=== PATIENT | male | born 1965 | race Caucasian/White ===

== ENCOUNTER 2018-09-18 03:44 | Emergency (ER) | payer OTHER ==
[~2018-09-18] VITALS: Ht 167.6 cm; Wt 77.1 kg
[2018-09-18 03:50] VITALS: Ht 167.6 cm; Wt 77.1 kg
[2018-09-18 05:45] VITALS: BP 157/105
== END 2018-09-18 05:45 | disposition home or self-care (01) ==
LOC: ED 03:44
DX: J32.8 Other chronic sinusitis (principal); L29.9 Pruritus, unspecified
CPT/HCPCS: J1885; Q0163